=== PATIENT | male | born 1965 | race Caucasian/White ===

== ENCOUNTER 2017-07-01 19:15 | Emergency (ER) | payer OTHER ==
[~2017-07-01 19:15] MED LIST: Sodium Chloride Irrig Solution 250 ML BOT ONE
[2017-07-01] MEDS ORDERED: Lidocaine 1% w/Epinephrine 1:100K 20 ML VIAL ONE (19:33)
[2017-07-01] MEDS ORDERED: Adacel (T-DAP) 0.5 ML VIAL ONE (19:55)
[2017-07-01] MEDS ORDERED: Bacitracin Zinc 1 Packet ONE (20:29)
== END 2017-07-01 20:53 | disposition home or self-care (01) ==
LOC: MADERS 19:15
DX: S51.811A Laceration without foreign body of right forearm, initial encounter (principal); I10 Essential (primary) hypertension; F17.210 Nicotine dependence, cigarettes, uncomplicated; W26.8XXA Contact with other sharp object(s), not elsewhere classified, initial encounter
CPT/HCPCS: 12002; 90471; 90715; J2001